=== PATIENT | male | born 1990 | race Caucasian/White ===

== ENCOUNTER 2019-01-22 07:57 | Day surgery (SDC) | payer OTHER ==
[2019-01-22] MEDS ORDERED: FENTAnyl 50 MCG/ML VIAL (09:43)
[2019-01-22] MEDS ORDERED: MIDAZOLAM 1 MG/ML 2 ML INJ ×2 (09:43)
== END 2019-01-22 11:36 | disposition home or self-care (01) ==
LOC: GIL 07:57
DX: K92.1 Melena (principal); K62.89 Other specified diseases of anus and rectum; K64.9 Unspecified hemorrhoids
CPT/HCPCS: 45380; 88305